=== PATIENT | male | born 1990 | race Two or more races ===

== ENCOUNTER 2020-04-03 12:01 | Emergency (ER) | payer OTHER ==
[~2020-04-03] VITALS: Ht 182.9 cm; Wt 90.7 kg
[2020-04-03 12:34] LABS: Urine Bacteria NONE SEEN /hpf (None Seen); Urine Blood Negative /uL (Negative); Urine WBC <1 /hpf (0 - 3)
[2020-04-03 14:59] VITALS: BP 132/81
== END 2020-04-03 16:14 | disposition home or self-care (01) ==
LOC: ER 12:01
DX: R10.2 Pelvic and perineal pain (principal)
CPT/HCPCS: 74176; 81001